=== PATIENT | male | born 1990 | race Caucasian/White ===

== ENCOUNTER 2019-02-11 00:05 | Observation (INO) | payer MEDICAID, OTHER ==
[2019-02-11] VITALS (7 sets, daily range): BP systolic 112–160; BP diastolic 51–93; BMI 50.7
[2019-02-11 00:40] LABS: BASOPHILS 0.2 % (0-2); EOSINOPHILS 0.2 % (0-7); HEMATOCRIT 41.4 % (42.0-54.0); HEMOGLOBIN 14.5 g/dL (13.5-17.5); IMMATURE GRANULOCYTES 0.3 % (0-5); LYMPHOCYTES 11.3 % (15-50); MCH 29.1 pg (26.0-34.0); MCV 83.1 fL (80.0-100.0); MEAN PLATELET VOLUME 10.5 fL (7.4-10.4); MONOCYTES 2.4 % (2-11); NEUTROPHILS 85.6 % (40-80); PLATELET COUNT 161 10x3/uL (130-400); RBC 4.98 10x6/uL (4.20-6.10); RDW 14.1 % (11.5-14.5); WBC 11.6 10x3/uL (4.8-10.8)
[2019-02-11 00:59] LABS: ALBUMIN 4.1 g/dL (3.4-5.0); ALKALINE PHOSPHATASE 62 U/L (46-116); ALT (SGPT) 51 U/L (10-68); BILIRUBIN - TOTAL 0.35 mg/dL (0.2-1.3); CALC OSMOLALITY 283 mosm/kg (275-300); CALCIUM 9.4 mg/dL (8.5-10.1); CARBON DIOXIDE 26.9 mmol/L (21.0-32.0); CHLORIDE - SERUM 106 mmol/L (98-107); CREATININE - SERUM 0.9 mg/dL (0.6-1.3); GLUCOSE 117 mg/dL (74-106); POTASSIUM - SERUM 4.2 mmol/L (3.5-5.1); SODIUM 142 mmol/L (136-145); UREA NITROGEN 12 mg/dL (7-18); eGFR NON AFRICAN AMERICAN > 90 mL/min (90-120)
[2019-02-11 01:08] LABS: CKMB 2.2 U/L (0.0-3.6); CREATINE KINASE 151 UL (21-232); MAGNESIUM - SERUM 2.1 mg/dL (1.8-2.4)
[2019-02-11 01:09] LABS: TROPONIN-I 0.192 ng/mL (0.000-0.060)
[2019-02-11 01:13] LABS: APTT 29.9 SECONDS (22.8-39.4); INR 1.03 (0.85-1.17)
--- NOTE | 2019-02-11 07:45 | NUR ---
AM ROUNDS COMPLETED. INTRODUCED MYSELF TO PT PRIMARY RN FOR TODAYS SHIFT. PT IS A&O SITTING UP IN BED RESTING QUIETLY. SHIFT ASSESSMENT COMPLETED. PT DENIES ANY CURRENT CHEST PAIN AND STATES HE CAME IN R/T A COUGH. UPON ASSESSING PT HE HAS WHEEZING THROUGHOUT ALL LOBES BUT DENIES ANY SOB OR LABORED BREATHING. WILL KEEP PT NPO UNTIL SEEN BY CARDIOLOGY R/T ELEVATED TROPONIN. PT DENIES ANY CURRENT PAIN OR NEEDS AT THIS TIME. WILL DISCUSS WITH PRIMARY AND CPOC.
--- NOTE | 2019-02-11 12:24 | NUR ---
PT ATE 100% OF HIS LUNCH AND STATES HE IS FEELING GOOD OVERALL. PT DENIES ANY CURRENT PAIN OR NEEDS. WAITING TO HEAR BACK ON TESTING. CL IN REACH, BED IN LOWEST, SIDE RAILS X2. WILL CTM.
--- NOTE | 2019-02-11 14:13 | NUR ---
TROPONIN REMAINS TO TREND DOWN. PT DENIES ANY CHEST PAIN OR NEEDS. RESTING QUIETLY IN BED, WILL CTM.
--- NOTE | 2019-02-11 17:05 | NUR ---
PT GETTING INTO SHOWER NOW, WRAPPED PIV. WILL CTM.
--- NOTE | 2019-02-11 17:46 | NUR ---
PT UP AMBULATORY AND REFUSED WANTING TO WEAR SCDS.
[2019-02-12] VITALS (7 sets, daily range): BP systolic 118–136; BP diastolic 49–86
--- NOTE | 2019-02-12 02:36 | NUR ---
IV TO LEFT A/C WAS NO LONGER PATENT WHEN ABT WAS DUE. RESITED 22G TO RFA AND STARTED IV ABT AT THIS TIME.
[2019-02-12 06:05] LABS: BASOPHILS 0.3 % (0-2); EOSINOPHILS 2.1 % (0-7); HEMATOCRIT 38.9 % (42.0-54.0); HEMOGLOBIN 13.1 g/dL (13.5-17.5); IMMATURE GRANULOCYTES 0.1 % (0-5); LYMPHOCYTES 27.8 % (15-50); MCH 28.2 pg (26.0-34.0); MCHC 33.7 g/dL (31.0-37.0); MCV 83.7 fL (80.0-100.0); MEAN PLATELET VOLUME 11.3 fL (7.4-10.4); MONOCYTES 9.4 % (2-11); NEUTROPHILS 60.3 % (40-80); PLATELET COUNT 156 10x3/uL (130-400); RBC 4.65 10x6/uL (4.20-6.10); RDW 14.1 % (11.5-14.5)
[2019-02-12 06:14] LABS: WBC 7.8 10x3/uL (4.8-10.8)
[2019-02-12 06:30] LABS: CALC OSMOLALITY 282 mosm/kg (275-300); CALCIUM 8.4 mg/dL (8.5-10.1); CARBON DIOXIDE 26.3 mmol/L (21.0-32.0); CHLORIDE - SERUM 106 mmol/L (98-107); CREATININE - SERUM 0.9 mg/dL (0.6-1.3); GLUCOSE 95 mg/dL (74-106); SODIUM 142 mmol/L (136-145); UREA NITROGEN 12 mg/dL (7-18); eGFR NON AFRICAN AMERICAN > 90 mL/min (90-120)
[2019-02-12 06:33] LABS: POTASSIUM - SERUM 3.1 mmol/L (3.5-5.1)
--- NOTE | 2019-02-12 07:40 | NUR ---
ROUNDING DONE WITH PATIENT INFORMED OF NEEDING URINE SAMPLE. URINAL PLACED IN BATH ROOM, ALSO TOLD PATIENT THAT I WILL BE DOING A FLU SWAB ON HIM. BILATEAL CRACKLES HEARD THROUGHOUT UPPER LUNG SIMEON. ON HEART MONITOR SHOWING SR, HR 90. ON ROOM AIR. RIGHT FA PIV SEEN WITH SALINE LOCK. ON EP, K+ IS 3.1. WILL COVER WITH ORAL SUPPLEMENTS.
--- NOTE | 2019-02-12 11:15 | NUR ---
FLU NASAL SWAB AND URINE FOR UA AND UDS SENT TO LAB ORDERED.
[2019-02-12 11:46] LABS: APPEARANCE CLEAR (CLEAR); BILIRUBIN NEGATIVE (NEGATIVE); COLOR YELLOW (YELLOW); GLUCOSE NEGATIVE (NEGATIVE); KETONE NEGATIVE (NEGATIVE); NITRITE NEGATIVE (NEGATIVE); PROTEIN NEGATIVE (NEGATIVE); UROBILINOGEN NORMAL (NORMAL)
[2019-02-12 12:46] LABS: UDS - AMPHET NEGATIVE QUAL (NEGATIVE); UDS - BARB NEGATIVE QUAL (NEGATIVE); UDS - BENZO NEGATIVE QUAL (NEGATIVE); UDS - COCAINE NEGATIVE QUAL (NEGATIVE); UDS - OPIATE NEGATIVE QUAL (NEGATIVE); UDS - PCP NEGATIVE QUAL (NEGATIVE); UDS - THC NEGATIVE QUAL (NEGATIVE)
--- NOTE | 2019-02-12 13:51 | NUR ---
PER GABRIELA HERRERA APN I PAGED DR KELLY THERE ARE NO NOTES FROM TODAY R/T ELEVATED TROP. AWAITING CALL BACK.
--- NOTE | 2019-02-12 13:57 | NUR ---
DR KELLY TO CALL BACK AND IS AWARE OF THE INCREASED TROP. NO NEW ORDERS AT THIS TIME.
--- NOTE | 2019-02-12 14:36 | NUR ---
RE-DRAW OF POTASSIUM IS 3.6.
--- NOTE | 2019-02-12 17:23 | NUR ---
DR MOSQUEDA IN TO SEE FAMILY AND PATIENT. NEW ORDERS RECEIVED.
--- NOTE | 2019-02-12 18:36 | NUR ---
MADISYN, DEPOSIT CLERK IS LOOKING FOR SOME CLEXEA FOR PATIENT THAT HAS BEEN ORDERED.
--- NOTE | 2019-02-12 20:00 | NUR ---
PT RESTING IN BED. NO DISTRESS. INITIAL ROUNDS COMPLETED. SEE ASSESSMENT.
--- NOTE | 2019-02-12 22:00 | NUR ---
ALL BEDTIME MEDS GIVEN. PT RESTING. CALL LIGHT IN REACH. MONITOR AND CPOC.
--- NOTE | 2019-02-13 03:01 | NUR ---
PT RESTING, IV ABT HAS INFUSED. NO DISTRESS. 84/SR PER TELEMETRY.
[2019-02-13 03:36] VITALS: BP 108/58
[2019-02-13 04:54] LABS: BASOPHILS 0.4 % (0-2); EOSINOPHILS 3.4 % (0-7); HEMATOCRIT 43.2 % (42.0-54.0); HEMOGLOBIN 14.4 g/dL (13.5-17.5); IMMATURE GRANULOCYTES 0.5 % (0-5); LYMPHOCYTES 27.6 % (15-50); MCH 28.4 pg (26.0-34.0); MCHC 33.3 g/dL (31.0-37.0); MCV 85.2 fL (80.0-100.0); MEAN PLATELET VOLUME 10.8 fL (7.4-10.4); MONOCYTES 11.5 % (2-11); NEUTROPHILS 56.6 % (40-80); PLATELET COUNT 160 10x3/uL (130-400); RBC 5.07 10x6/uL (4.20-6.10); RDW 14.5 % (11.5-14.5); WBC 7.4 10x3/uL (4.8-10.8)
[2019-02-13 05:08] LABS: CALC OSMOLALITY 278 mosm/kg (275-300); CALCIUM 8.8 mg/dL (8.5-10.1); CARBON DIOXIDE 27.3 mmol/L (21.0-32.0); CHLORIDE - SERUM 105 mmol/L (98-107); CREATININE - SERUM 0.8 mg/dL (0.6-1.3); GLUCOSE 92 mg/dL (74-106); POTASSIUM - SERUM 4.1 mmol/L (3.5-5.1); SODIUM 141 mmol/L (136-145); eGFR NON AFRICAN AMERICAN > 90 mL/min (90-120)
[2019-02-13 05:12] LABS: UREA NITROGEN 8 mg/dL (7-18)
--- NOTE | 2019-02-13 07:20 | NUR ---
ROUNDING DONE WITH PATIENT HAVING NO NEEDS AT THIS TIME. ON HEART MONITOR SHOWING SR, HR 93. ON ROOM AIR. FRIGHT FA PIV SEEN WITH SALINE LOCK, ORANGE SWAB CAP IN USE. ON EP, K+ IS 4.1.
[2019-02-13 07:59] VITALS: BP 134/68
[2019-02-13 11:57] VITALS: BP 120/50
[2019-02-13] MEDS ORDERED: ZITHROMAX250 MG PO (14:03)
[2019-02-13] MEDS ORDERED: COREG6.25 MG PO (14:03)
--- NOTE | 2019-02-13 15:48 | NUR ---
VERBAL AND WRITTEN DISCHARGE INSTRUCTIONS GIVEN TO PATIENT. I ASKED THAT HE CALL HIS PCP TOMORROW MORNING AND SEE WHEN HE CAN GO BACK TO WORK. SALINE LOCK REMOVED WITH CATH TIP INTACT. DISCHARGED HOME VIA WHEELCHAIR.
--- NOTE | 2019-02-14 08:38 | MORECARE ---
CASE MANAGEMENT DISCHARGE SUMMARY PATIENT: ALICIA DAWN UNIT: [id number] ADM DATE: 02/11/19 AGE: 28 : [birth year] SEX: M ROOM/BED: D.2115 AUTHOR: ARGELIA MILLER PHYSICIAN: REFERRING PHYSICIAN: KESHAWN MOSQUEDA MD DATE OF SERVICE: 02/14/19 Discharge Plan Patient Name: ALICIA DAWN [facility] [facility] 1990 Planned Disposition: Home Anticipated Discharge Date: 02/13/19 Discharge Date: 02/13/2019 Expected LOS: 2 Initial Reviewer: [email or web address] Initial Review Date: 02/14/2019 Generated: 02/14/19 9:37 am Patient Name: ALICIA DAWN Page [id number] at 0838 All edits/amendments must be made on the electronic document DICTATION DATE: 02/14/1935 REGIONAL HR MANAGER: IVAN 02/14/1935 RPT#: [id number] DC DATE:02/13/19 STATUS: DIS IN [facility] [address] [place] [address] END OF REPORT
--- NOTE | 2019-02-14 09:55 | EC ---
PATIENT:ALICIA DAWN DATE OF SERVICE: 02/11/19 SEX: M MEDICAL RECORD: [id number] DATE OF : [birth year] LOCATION:D.M2 D.211 AGE OF PATIENT: 28 ADMISSION DATE: 02/11/19 REFERRING PHYSICIAN: INTERPRETING PHYSICIAN: JOSÉ KELLY MD ECHOCARDIOGRAM REPORT ECHO CHARGES 4 ECHO COMPLETE Date: 02/11/19 CLINICAL DIAGNOSIS: ECHOCARDIOGRAPHIC MEASUREMENTS (adult normal given) AC root (d.<3.7cm) 3.0 cm LV Septum d (<1.2 cm> 1.3 cm Valve Excursion 1.8 cm LV Septum (systole) 1.5 cm Left Atria (s.<4.0cm> 4.8 cm LVPW d(<1.2cm) 1.0 cm RV (d.<2.3cm) 3.0 cm LVPW (sytole) 1.2 cm LV diastole(<5.6CM) 6.1 cm MV E-F(>70mm/sec) cm LV systole 5.2 cm LVOT Diameter 1.9 cm MV exc.(>10mm) cm Est.ejection fraction (50-75%) % DOPPLER: LVIT cm/sec A 95 cm/sec E 106 cm/sec LA cm/sec RVSP 23.2 mmHg LVOT 190 cm/sec AOP1/2T m/s Asc. Ao 225 cm/sec RVOT 116 cm/sec RA cm/sec PA 180 cm/sec AV Gradient Peak 20.2 mmHg AV Mean 14.1 mmHg AV Area 3.1 cm MV Gradient Peak 8.0 mmHg MV Mean 4.7 mmHg MV Area cm COMMENTS: Lumber Piler: Syl [facility] Home Service Director: 2 Dr. Lucero TAPE# PACS Pericardial Effusion N DATE OF SERVICE: Adequate 2D, color flow imaging, spectral Doppler, and M-Mode Borderline LVH. LV internal dimensions are dilated. Wall motion is normal. EF is normal. EF is greater than or equal to 55%. Aortic valve is tricuspid with mildly elevated velocity, peak gradient of 20 mmHg. There is mild AI as well present. Left atrium is dilated at 4.8 cm. Mitral valve shows no prolapse. Mild MR. Right-sided chambers are grossly normal. Mild TR. ECHOCARDIOGRAM REPORT [id number] ALICIA DAWN TRANSINT:[id number] Voice Confirmation ID: [id number] DOCUMENT ID: [id number] JOSÉ KELLY MD at 0955 CC: [id number] DICTATION DATE: 02/12/19911 POLICY ANALYST: 02/12/19 1140 DIS IN 02/13/19 [place] [id number] [place] [id number]
== END 2019-02-13 15:49 | disposition home or self-care (01) ==
LOC: D.ER 00:05 → D.M2 01:47 → OBSVTIME 01:47 → D.M2 01:47
PROVIDERS: Family Medicine; ADMIT Internal Medicine Nephrology; ATTEND Internal Medicine Nephrology
DX: J40 Bronchitis, not specified as acute or chronic (principal); R79.89 Other specified abnormal findings of blood chemistry; F17.213 Nicotine dependence, cigarettes, with withdrawal; E66.01 Morbid (severe) obesity due to excess calories; Z68.43 Body mass index [BMI] 50.0-59.9, adult